=== PATIENT | female | born 1960 | race Asian ===

== ENCOUNTER 2018-04-26 10:03 | Outpatient (RCR) | payer OTHER ==
[~2018-04-26 10:03] MED LIST: CIPRO 500MG TA500 MG PO; GLUCOPHAGE XR500 M1 PO; GLYBURIDE2.5 MG PO; HUMALOG PEN100 U/ML SQ; HYGROTON 2525 MG/TAB PO; JANUMET 500 MG-1 TAB PO; JANUVIA 100MG100 MG PO; LEVEMIR FLEXPEN SC; LEVEMIR100 U/ML SQ; METFORMIN500 MG PO; NO HOME MEDICATIONS; NOVOLOG FLEX100 U/ML; OXYCODONE5 M1 PO; PRILOTC PO; [UNRECOGNIZED DRUG - OTHER] IJ
== END 2018-07-25 | disposition home or self-care (01) ==
LOC: WSOH
DX: S70.12XA Contusion of left thigh, initial encounter (principal); R22.42 Localized swelling, mass and lump, left lower limb; W22.8XXA Striking against or struck by other objects, initial encounter; Y92.219 Unspecified school as the place of occurrence of the external cause; Y99.0 Civilian activity done for income or pay; Z79.4 Long term (current) use of insulin; Z79.899 Other long term (current) drug therapy

== ENCOUNTER → 2018-10-26 | Outpatient (CLI) | payer BC | LOC: MC.RAD 09-22 09:40 | DX: Z12.31 Encounter for screening mammogram for malignant neoplasm of breast (principal) ==

== ENCOUNTER 2019-11-21 18:04 | Emergency (ER) | payer OTHER ==
[~2019-11-21] VITALS: Ht 160 cm; Wt 71.4 kg
[2019-11-21 18:10] VITALS: BP 179/83; TEMP 98.8
[2019-11-21 19:51] LABS: BASO % 0.4 % (0.0-2.0); EOS # 0.1 (0.0-0.7); EOS % 0.8 % (0-4.0); GRAN # 4.3 (1.4-6.5); GRAN % 51.9 % (42.2-75.2); HEMOGLOBIN 11.8 g/dl (12.5-16.0); LYMPH # 3.3 (1.2-3.4); LYMPH % 40.4 % (20.0-51.0); MEAN CELL VOLUME 86 fl (80.0-100.0); MEAN CORPUSCULAR HEMOGLOBIN 28 pg (27.0-31.0); MEAN CORPUSCULAR HGB CONC 33 g/dl (33.0-37.0); MONO # 0.5 (0.1-0.6); MONO % 6.3 % (1.7-9.3); PLATELET COUNT 295 K/mm3 (130-400); REDCELL DISTRIBUTION WIDTH-CV 13.2 % (11.5-14.5)
[2019-11-21 19:55] LABS: ALBUMIN 4.1 gm/dL (3.5-5.0); BILIRUBIN,TOTAL 0.2 mg/dL (0.0-1.0); CALCIUM 9.3 mg/dL (8.4-10.2); CREATININE, serum 0.74 (0.52-1.25); TOTAL PROTEIN 7.1 gm/dL (6.4-8.2)
[2019-11-21 19:55] LABS: COLLECTION METHOD CLEAN CATCH
[2019-11-21 19:59] LABS: POTASSIUM 2.8 mmol/L (3.4-5.0)
[2019-11-21 20:01] LABS: MUCOUS Present /lpf; PH 5 (5-8); SQUAMOUS EPITHELIAL 0-2 /hpf; URINE APPEARANCE Clear; URINE BACTERIA None Seen /hpf; URINE BILIRUBIN Negative (NEGATIVE); URINE BLOOD Negative (NEGATIVE); URINE COLOR Yellow; URINE GLUCOSE Negative (NEGATIVE); URINE KETONE Negative (NEGATIVE); URINE LEUKOCYTE ESTERASE Negative (NEGATIVE); URINE NITRATE Negative (NEGATIVE); URINE PROTEIN(semi-quant) Negative (NEGATIVE); URINE RBC 0-2 /hpf; URINE UROBILINOGEN Negative (NEGATIVE)
[2019-11-21 20:50] VITALS: PULSE 69
== END 2019-11-21 21:00 | disposition home or self-care (01) ==
LOC: COL.ER 18:04
PROVIDERS: Family Medicine
DX: S30.1XXA Contusion of abdominal wall, initial encounter (principal); S00.93XA Contusion of unspecified part of head, initial encounter; K21.9 Gastro-esophageal reflux disease without esophagitis; E11.9 Type 2 diabetes mellitus without complications; E87.6 Hypokalemia; Z79.4 Long term (current) use of insulin; V89.2XXA Person injured in unspecified motor-vehicle accident, traffic, initial encounter
CPT/HCPCS: Q9967

== ENCOUNTER 2021-05-27 11:35 | Emergency (ER) | payer OTHER ==
[~2021-05-27] VITALS: Ht 160 cm; Wt 70.5 kg
[2021-05-27 11:58] VITALS: TEMP 97.7
[2021-05-27 15:03] VITALS: BP 156/80; PULSE 71
== END 2021-05-27 15:04 | disposition home or self-care (01) ==
LOC: COL.ER 11:35
DX: S93.601A Unspecified sprain of right foot, initial encounter (principal); M25.512 Pain in left shoulder; E11.9 Type 2 diabetes mellitus without complications; Z79.4 Long term (current) use of insulin; W01.0XXA Fall on same level from slipping, tripping and stumbling without subsequent striking against object, initial encounter; Y92.096 Garden or yard of other non-institutional residence as the place of occurrence of the external cause; Y99.0 Civilian activity done for income or pay